=== PATIENT | male | born 1965 | race Caucasian/White ===

== ENCOUNTER → 2016-11-26 08:26 | Outpatient (CLI) | payer MEDICAID | END | disposition home or self-care (01) | LOC: D.MRI 08:26 | DX: F98.5 Adult onset fluency disorder (principal) ==

== ENCOUNTER → 2017-02-18 09:50 | Outpatient (CLI) | payer MEDICAID ==
--- NOTE | 2017-02-20 07:29 | EEG ---
PATIENT:ANDREAS BOYLE DATE OF SERVICE: 02/18/17 MEDICAL RECORD: [id number] DATE OF : 69 LOCATION: [facility] ADMISSION DATE: 02/18/17 REFERRING PHYSICIAN: INTERPRETING PHYSICIAN: OMID CHAWLA MD DATE OF SERVICE: 02/18/2017 Referred by myself as an outpatient. ELECTROENCEPHALOGRAM NUMBER: [id number]. DATE OF EXAMINATION: 02/18/2017 at 10:25 a.m. TECHNICAL DATA: This electroencephalographic recording consisted of approximately 20 minutes of data collection utilizing the international 10/20 system of electrode placement and both referential and non-referential montages. Sixteen channels of electrocerebral recording are accompanied by a 17th channel dedicated to the electrocardiographic rhythm and 2 channels of electromyographic recording. Recording is performed in the awake and drowsy states utilizing activation by hyperventilation and photic stimulation. ELECTROENCEPHALOGRAPHIC DATA: The awake state comprises approximately 80% of the recorded electrocerebral activity. Electromyographic artifact is prominent and rapid eye movements are seen. The posterior dominant background consists of a symmetric, rhythmic, waxing and waning 9-10 Hz alpha activity, which is suppressed by eye opening. The drowsy state comprises the remaining portion of the recorded electrocerebral activity. Electromyographic artifact is diminished and rapid eye movements are not seen. The posterior dominant background is relatively suppressed. No abnormal or focal slowing is identified. No epileptiform discharges are seen. Hyperventilation and photic stimulation induced no abnormal change in the recorded electrocerebral activity. INTERPRETATION: Normal (awake and drowsy). This is a normal electroencephalographic recording. TRANSINT:[id number] Voice Confirmation ID: [id number] DOCUMENT ID: [id number] OMID CHAWLA MD at 0729 CC: [id number] DICTATION DATE: 02/19/17 0715 PERSONNEL GENERALIST MANAGER: 02/19/17 0902 [facility] CLI 02/18/17 [place] [id number] [place] [id number]
== END | disposition home or self-care (01) ==
LOC: D.CN 09:50
DX: F98.5 Adult onset fluency disorder (principal)